=== PATIENT | female | born 1955 | race Two or more races ===

== ENCOUNTER 2023-11-12 14:03 | Emergency (ER) | payer OTHER ==
[~2023-11-12] VITALS: Ht 149.9 cm; Wt 61.7 kg
[2023-11-12] MEDS ORDERED: HYDRODIURIL12.5 MG PO (14:35)
[2023-11-12 15:03] LABS: HEMATOCRIT 38.5 % (36.0-45.00); HEMOGLOBIN 12.9 g/dL (12.0-15.00); MEAN CELL VOLUME 88.1 fL (80.00-100.00); MEAN CORPUSCULAR HEMOGLOBIN 29.6 pg (27.00-32.0); MEAN CORPUSCULAR HGB CONC 33.6 g/dl (32.0-36.0); PLATELET COUNT 391 K/uL (150-450); RED BLOOD COUNT 4.37 M/uL (4.00-6.00)
== END 2023-11-12 18:01 | disposition home or self-care (01) ==
LOC: ER 14:03
PROVIDERS: Emergency Medicine
DX: N95.0 Postmenopausal bleeding (principal); N93.8 Other specified abnormal uterine and vaginal bleeding; I10 Essential (primary) hypertension; Z88.0 Allergy status to penicillin; Z91.013 Allergy to seafood